=== PATIENT | male | born 1965 | race Caucasian/White ===

== ENCOUNTER → 2017-02-12 | Outpatient (CLI) | payer OTHER ==
--- NOTE | 2017-02-12 15:48 | RADRPT ---
PROCEDURE: Left knee radiographs. CLINICAL INDICATION: Left knee pain. TECHNIQUE: Four views. Weight bearing. Frontal, lateral, oblique, and patellar view. COMPARISON: No prior studies are available for comparison. FINDINGS: There is no fracture or dislocation. The soft tissues are normal. There are degenerative changes with osteophytes arising from all 3 joint compartment margins. There is no joint space narrowing or deformity. There is no lytic or blastic lesion. There has been prior surgery with a surgical staple in the medial tibial plateau. IMPRESSION: 1. Mild degenerative change. 2. Prior surgery. 3. No acute abnormality. RPTAT: QQ .Parminder Maravilla MD, MD Date Time Electronically viewed and signed by .Parminder Maravilla MD, on 02/12/2017 15:48 .R/
== END | disposition home or self-care (01) ==
LOC: HKI 10:19
PROVIDERS: ATTEND Orthopaedic Surgery
DX: M17.12 Unilateral primary osteoarthritis, left knee (principal); F32.9 Major depressive disorder, single episode, unspecified; G89.21 Chronic pain due to trauma; S83.512D Sprain of anterior cruciate ligament of left knee, subsequent encounter; V29.9XXD Motorcycle rider (driver) (passenger) injured in unspecified traffic accident, subsequent encounter; Z72.0 Tobacco use
CPT/HCPCS: 73564; Z7500; G0463

== ENCOUNTER → 2017-03-10 | Outpatient (CLI) | payer OTHER | END | disposition home or self-care (01) | LOC: HKI 10:12 | PROVIDERS: ATTEND Orthopaedic Surgery | DX: M25.562 Pain in left knee (principal); M17.12 Unilateral primary osteoarthritis, left knee; S83.512A Sprain of anterior cruciate ligament of left knee, initial encounter | CPT/HCPCS: 20610; J1030; Z7610 ==